=== PATIENT | female | born 2000 | race Two or more races ===

== ENCOUNTER 2023-06-16 19:56 | Emergency (ER) | payer OTHER ==
[~2023-06-16] VITALS: Ht 152.4 cm; Wt 40.8 kg
[2023-06-16 21:36] LABS: HEMATOCRIT 38.4 % (36.0-45.00); HEMOGLOBIN 13.1 g/dL (12.0-15.00); MEAN CELL VOLUME 88.1 fL (80.00-100.00); MEAN CORPUSCULAR HEMOGLOBIN 30.1 pg (27.00-32.0); MEAN CORPUSCULAR HGB CONC 34.2 g/dl (32.0-36.0); PLATELET COUNT 247 K/uL (150-450); RED BLOOD COUNT 4.35 M/uL (4.00-6.00)
[2023-06-16 22:07] LABS: URINE APPEARANCE Cloudy; URINE BILIRRUBIN Negative (NEGATIVE); URINE BLOOD Large; URINE COLOR Yellow; URINE GLUCOSE Negative (NEGATIVE); URINE LEUKOCYTE Large; URINE NITRATE Negative
[2023-06-16 22:08] LABS: URINE BACTERIA 2739.1 uL (0.0-1933); URINE EPITHELIAL CELLS 9.2 uL (0.0-38.8); URINE RBC 683.8 uL (0.0-20.8)
[2023-06-16 22:35] LABS: URINE CRYSTALS FEW /HPF; URINE MUCUS SCANT; URINE PROTEIN 100 (NEGATIVE)
== END 2023-06-16 23:02 | disposition home or self-care (01) ==
LOC: ER 19:57
PROVIDERS: General Practice
DX: N39.0 Urinary tract infection, site not specified (principal); B95.7 Other staphylococcus as the cause of diseases classified elsewhere